=== PATIENT | female | born 1965 | race African-American/Black ===

== ENCOUNTER 2016-07-02 23:35 | Emergency (ER) | payer OTHER ==
[2016-07-02 23:44] VITALS: BP 139/98
--- NOTE | 2016-07-02 23:52 | PROVIDER DOCUMENTATION ---
HPI-Musculoskeletal Pain/Inj - GENERAL Source: patient - HX OF PRESENT ILLNESS-MUSKULOSKELTAL Quality of Pain: reports: aching Severity in ED: mild Onset/Duration: this morning Timing: still present Modifying Factors: worse with: movement Any recent injury?: No Locality of Occurance: Home Similar Symptoms Previously?: No Recently seen or treated by another doctor?: No - BACK & NECK PAIN/INJURY Back/Neck Pain Location: reports: lumbar spine Context / Method of Injury: reports: unknown Associated Symptoms: reports: lower back pain History of Chronic Neck or Back Pain?: Yes <Jose Manuel Arteaga - Last Filed: 07/02/16 23:53> <Cass Landaverde - Last Filed: 07/02/16 23:57> - GENERAL Chief Complaint: Back Pain Stated Complaint: FLANK PAIN Time Seen by Provider: 07/02/16 23:47 - HX OF PRESENT ILLNESS-MUSKULOSKELTAL Nature of Presenting Problem: 50 y/o F presents to the ED c/o back pain. hx of chronic back pain. patient states she moved furniture this weekend and started having pain today. denies all other symptoms. no other voiced complaints. (Jose Manuel Arteaga) Review of Systems - Adult - REVIEW OF SYSTEMS - ADULT Constitutional: denies: chills, fever Eyes: reports: no symptoms reported Ears, Nose, Mouth & Throat: reports: no symptoms reported Cardiovascular: denies: chest pain, palpitations Respiratory: denies: cough, shortness of breath Gastrointestinal: denies: diarrhea, nausea, vomiting Genitourinary: denies: dysuria, frequency, flank pain Musculoskeletal: reports: back pain. denies: joint swelling, neck pain Integumentary: denies: itching, rash Neurological: denies: dizziness/vertigo, headache/migraines Psychiatric: reports: no symptoms reported Endocrine: reports: no symptoms reported Hematologic/Lymphatic: reports: no symptoms reported Allergic/Immunologic: reports: no symptoms reported <Jose Manuel Arteaga - Last Filed: 07/02/16 23:53> Past History - Adult - PAST MEDICAL HISTORY-ADULT Review of Records: reports: Nursing Assessment Review, Medications Reviewed, Social history reviewed & non-contributory. Major Childhood Illnesses: reports: denies history Cardiovascular: reports: HTN Respiratory: reports: COPD Gastrointestinal: reports: diverticulosis, GERD Obstetrical/Gynecological: reports: other (vaginitis) Genitourinary: reports: chronic UTI's Musculoskeletal: reports: chronic pain, intervertebral disc disease Neurological: reports: denies history Psychiatric: reports: bipolar Endocrine/Immune: reports: denies history Other Conditions: reports: denies history - PRIOR SURGERIES/PROCEDURES Surgical/Procedure History: reports: cholecystectomy, hysterectomy, , other - IMMUNIZATION STATUS Childhood Immunizations: See Nurse Assessment Flu Vaccine: See Nurse Assessment - FAMILY HISTORY Family History: reviewed, not pertinent <Jose Manuel Arteaga - Last Filed: 07/02/16 23:53> - SOCIAL HISTORY Smoking: less than 1 pack/day Provider spent 3-5 mins advising pt. on dangers of tobacco.: Discussed manners to quit use, and f/u contacts for add'l counseling. Substance Use: none/never Alcohol Use Frequency: never Living Situation: family <Cass Landaverde - Last Filed: 07/02/16 23:57> Physical Exam-Injury Related - Physical Exam-Injury Related Initial Vital Signs Reviewed: Yes General Appearance: appears well, alert, no apparent distress Eyes: PERRL/EOMI, pink conjunctivae Neck: non-tender, full range of motion, normal inspection Respiratory: chest non-tender, lungs clear, normal breath sounds, no pleuratic chest pain, no respiratory distress, no accessory muscle use Cardiovascular: normal peripheral pulses, regular rate, rhythm Abdominal Exam: normal bowel sounds, non tender, soft Back Exam: decreased range of motion (minimal, secondary to pain), other ( paraspinal muscle tenderness to palpation) Extremity: normal range of motion, normal gait, normal inspection, normal capillary refill Integumentary: normal color, warm/dry Neurologic: forming fixer II-XII nml as tested, no motor/sensory deficits Psych/Mental Status: normal mood/affect, oriented x 3 <Jose Manuel Arteaga - Last Filed: 07/02/16 23:53> Progress <Jose Manuel Arteaga - Last Filed: 07/02/16 23:53> <Cass Landaverde - Last Filed: 07/02/16 23:57> - PLAN OF CARE/RESULTS Progress/Plan/Lab Results: Vital Signs Temp Pulse Resp BP Pulse Ox 07/02/16 23:39 98.5 F 101 H 18 139/98 100 amoxicillin [Amoxicillin] Allergy (Mild, Verified 05/29/16 00:35) ITCHING Metoprolol [Lopressor] 50 mg PO DAILY 02/02/14 Metformin [Glucophage] 500 mg PO DAILY 09/22/14 Albuterol Sulfate Inhaler [Ventolin Hfa] 2 puff INH Q6H PRN PRN 05/29/16 Cetirizine HCl [Zyrtec] 10 mg PO DAILY PRN PRN 05/29/16 Ranitidine HCl 300 mg PO DAILY 05/29/16 Tramadol [Ultram] 50 mg PO Q8HR PRN #15 tablet 05/29/16 Orders Category Date Time Status Ketorolac [Toradol] Med 07/02/16 23:55 Once 15 mg IM NOW ONE Orphenadrine [Norflex] Med 07/02/16 23:55 Once 60 mg IM NOW ONE (Cass Landaverde) Departure <Jose Manuel Arteaga - Last Filed: 07/02/16 23:53> - Departure Time of Disposition Order: 23:56 Certified Medical Emergency: Emergent <Cass Landaverde - Last Filed: 07/02/16 23:57> - Departure DIAGNOSIS: Chronic back pain greater than 3 months duration Disposition: HOME 01 Condition: Stable Additional Instructions: Follow up with your primary care physician ED Follow Up Instructions: You have been treated by a care provider in the Emergency Department. These instructions are being provided to you so you can have an understanding of how to care for yourself upon discharge. Upon discharge from the Emergency Department, you are responsible for making arrangements for follow-up care by a physician of your choice. Take all prescribed medications as directed. Return to the Emergency Department immediately for any new or worsening symptoms. You may call the Physician Referral phone number at [phone] to obtain a list of Physicians who are taking new patients. Prescriptions: Cyclobenzaprine [Flexeril] 10 mg PO TID #20 tablet Referrals: None,PCP [Primary Care Provider] - Attestation - Scribe Verification/Attestation Scribe:: Jose Manuel Arteaga Acting as Scribe for:: Cass Landaverde Scribe documention review:: This chart was documented by a scribe and accurately reflects the service the provider performed and the decisions made by the provider. <Jose Manuel Arteaga - Last Filed: 07/02/16 23:53> Physician Attestation
[2016-07-02] MEDS ORDERED: TORADOL IM ONE (23:55)
[2016-07-02] MEDS ORDERED: NORFLEX IM ONE (23:55)
== END 2016-07-03 00:11 | disposition home or self-care (01) ==
LOC: P.ED 23:35
DX: G89.29 Other chronic pain (principal); M54.5 Low back pain; R10.9 Unspecified abdominal pain; I10 Essential (primary) hypertension; J44.9 Chronic obstructive pulmonary disease, unspecified; F17.210 Nicotine dependence, cigarettes, uncomplicated; Z79.899 Other long term (current) drug therapy; Z71.6 Tobacco abuse counseling; Z87.440 Personal history of urinary (tract) infections
CPT/HCPCS: J1885; J2360